=== PATIENT | male | born 1970 ===

== ENCOUNTER 2017-08-25 18:31 | Observation (INO) | payer MEDICAID ==
[2017-08-25 19:31] LABS: BASO # 0.1 K/uL (0.0-0.2); BASO % 1.2 % (0.0-2.0); EOS # 0.4 K/uL (0.0-0.7); EOS % 3.9 % (0.0-4.0); HEMOGLOBIN 13.9 g/dL (12.0-18.0); LYMPH % 30.1 % (20.0-40.0); MEAN CELL VOLUME 94.5 fl (80.0-94.0); MEAN CORPUSCULAR HEMOGLOBIN 31.5 pg (27.0-31.0); MEAN CORPUSCULAR HGB CONC 33.3 g/dL (33.0-37.0); MEAN PLATELET VOLUME 7.4 fl (7.2-11.7); MONO # 0.7 K/uL (0.0-0.8); MONO % 7.1 % (0.0-10.0); NEUT # 5.8 K/uL (1.8-7.0); NEUT % 57.7 % (50.0-75.0); NRBC % 0.1 % (0.0-0.0); RBC 4.42 Mil/uL (4.40-5.90); RED CELL DISTRIBUTION WIDTH 13.2 % (11.5-14.5); WHITE BLOOD COUNT 10.1 K/uL (4.8-10.8)
[2017-08-25 19:43] LABS: ALB/GLOB RATIO 1.3 (1.0-2.1); ALBUMIN 3.7 g/dL (3.5-5.0); ALT/SGPT 38 U/L (21-72); AST/SGOT 23 U/L (17-59); BLOOD UREA NITROGEN 21 mg/dl (9-20); CALCIUM 8.9 mg/dL (8.4-10.2); GFR AFRICAN-AMERICAN > 60; GFR NON-AFRICAN AMERICAN > 60
[2017-08-25] MEDS ORDERED: Sodium Chloride 0.9% 1,000 ML IV STA ×2 (19:46→23:30)
[2017-08-25] MEDS ORDERED: Iohexol 300 100 ML IJ ONE (19:57)
[2017-08-25] MEDS ORDERED: Sodium Chloride 0.9% 100 ML ONE (19:58)
--- NOTE | 2017-08-25 20:12 | ED PDOC ---
HPI: Altered Mental Status Time Seen by Provider: 08/25/17 18:40 Chief Complaint (Nursing): Weakness/Neurological Deficit Chief Complaint (Provider): Abdominal pain, possible syncope History Per: Patient, EMS History/Exam Limitations: Clinical Condition Usual Baseline: Unknown Additional Complaint(s): 48 yo male brought in for evaluation of AMS and syncope according to triage note. EMS informed RN at bedside that patient admits to drinking today and was found laying on the ground sleeping. Pt only states he has abdominal pain and difficult to arouse. PT is not answering any questions. Past Medical History Reviewed: Historical Data, Nursing Documentation, Vital Signs Vital Signs: Last Vital Signs Temp 97.8 F 08/25/17 18:33 Pulse 102 H 08/25/17 18:33 Resp 18 08/25/17 18:33 BP 90/52 L 08/25/17 18:33 Pulse Ox 95 08/25/17 18:33 - Medical History PMH: No Chronic Diseases - Surgical History Surgical History: No Surg Hx - Family History Family History: States: No Known Family Hx - Living Arrangements Living Arrangements: With Family - Social History Current smoker - smoking cessation education provided: No - Allergies Allergies/Adverse Reactions: Allergies Allergy/AdvReac Type Severity Reaction Status Date / Time Penicillins Allergy RASH Verified 08/25/17 18:33 Review of Systems Review Of Systems: ROS cannot be obtained secondary to pt's inabilty to answer questions. Physical Exam - Reviewed Nursing Documentation Reviewed: Yes Vital Signs Reviewed: Yes - Physical Exam Appears: Positive for: Well, Non-toxic, No Acute Distress Head Exam: Positive for: ATRAUMATIC, NORMAL INSPECTION, NORMOCEPHALIC Skin: Positive for: Normal Color, Warm, DRY Eye Exam: Positive for: EOMI, Normal appearance, PERRL ENT: Positive for: Normal ENT Inspection Neck: Positive for: Normal, Painless ROM Cardiovascular/Chest: Positive for: Regular Rate, Rhythm Respiratory: Positive for: CNT, Normal Breath Sounds Gastrointestinal/Abdominal: Positive for: Soft, Tenderness (Epigastric, no pulsitile mass ). Negative for: Normal Exam Back: Positive for: Normal Inspection Extremity: Positive for: Normal ROM Neurologic/Psych: Positive for: Alert, Oriented - Laboratory Results Result Diagrams: 08/25/17 19:20 08/25/17 19:20 - ECG O2 Sat by Pulse Oximetry: 95 Medical Decision Making Medical Decision Making: Labs, head CT and abdominal CT ordered. Alcohol (-) additional orders placed. 2010 - Endosrsed to JYOTI Cramer. Pt up and asking RN for food. Disposition - Clinical Impression Clinical Impression: Altered mental status - Patient ED Disposition Is Patient to be Admitted: Transfer of Care - Disposition Disposition: Transfer of Care Disposition Time: 20:14 Condition: STABLE
--- NOTE | 2017-08-25 21:52 | CT ---
EXAM: CT Head Without Intravenous Contrast EXAM DATE/TIME: 08/25/2017 8:48 PM CLINICAL HISTORY: 48 years old, male; Pain and signs and symptoms; Altered mental status/memory loss and dizziness and other: Weakness; Other: Not specified; Headache; Headache not specified; Additional info: AMS TECHNIQUE: Axial computed tomography images of the head/brain without intravenous contrast. All CT scans at this facility use one or more dose reduction techniques, viz.: automated exposure control; ma/kV adjustment per patient size (including targeted exams where dose is matched to indication; i.e. head); or iterative reconstruction technique. Coronal and sagittal reformatted images were created and reviewed. COMPARISON: No relevant prior studies available. FINDINGS: BRAIN: No significant acute abnormality identified. No acute hemorrhage seen within the brain. No acute extra-axial fluid collections visualized. No evidence of significant mass effect within the brain. VENTRICLES: No evidence of significant hydrocephalus. BONES/JOINTS: Metallic hardware in the left orbital roof. SOFT TISSUES: No acute abnormality of the visualized soft tissues is seen. SINUSES: Mild sinus inflammatory disease. There is mild mucosal thickening in the bilateral ethmoid, bilateral maxillary and left frontal sinuses. MASTOID AIR CELLS: Mastoid air cells appear clear. IMPRESSION: - No acute findings seen within the brain. - See above for remaining findings.
--- NOTE | 2017-08-25 21:56 | ED PDOC ---
- Laboratory Results Result Diagrams: 08/25/17 19:20 08/25/17 19:20 - ECG O2 Sat by Pulse Oximetry: 95 Pulse Ox Interpretation: Normal - Radiology X-Ray: Viewed By Me X-Ray Interpretation: No Acute Disease - Progress ED Course And Treament: case endorsed to remote mortgage underwriter from [facility]ONT[facility] pending labs, imaging, re-eval EXAM: CT Head Without Intravenous Contrast EXAM DATE/TIME: 08/25/2017 8:48 PM CLINICAL HISTORY: 48 years old, male; Pain and signs and symptoms; Altered mental status/memory loss and dizziness and other: Weakness; Other: Not specified; Headache; Headache not specified; Additional info: AMS TECHNIQUE: Axial computed tomography images of the head/brain without intravenous contrast. All CT scans at this facility use one or more dose reduction techniques, viz.: automated exposure control; ma/kV adjustment per patient size (including targeted exams where dose is matched to indication; i.e. head); or iterative reconstruction technique. Coronal and sagittal reformatted images were created and reviewed. COMPARISON: No relevant prior studies available. FINDINGS: BRAIN: No significant acute abnormality identified. No acute hemorrhage seen within the brain. No acute extra-axial fluid collections visualized. No evidence of significant mass effect within the brain. VENTRICLES: No evidence of significant hydrocephalus. BONES/JOINTS: Metallic hardware in the left orbital roof. SOFT TISSUES: No acute abnormality of the visualized soft tissues is seen. SINUSES: Mild sinus inflammatory disease. There is mild mucosal thickening in the bilateral ethmoid, bilateral maxillary and left frontal sinuses. MASTOID AIR CELLS: Mastoid air cells appear clear. IMPRESSION: - No acute findings seen within the brain. - See above for remaining findings. EXAM: CT Abdomen and Pelvis With Intravenous Contrast EXAM DATE/TIME: 08/25/2017 8:50 PM CLINICAL HISTORY: 48 years old, male; Pain; Abdominal pain; Epigastric; Additional info: Abd pain TECHNIQUE: Axial computed tomography images of the abdomen and pelvis with intravenous contrast. All CT scans at this facility use one or more dose reduction techniques, viz.: automated exposure control; ma/kV adjustment per patient size (including targeted exams where dose is matched to indication; i.e. head); or iterative reconstruction technique. Coronal and sagittal reformatted images were created and reviewed. CONTRAST: 90 mL of [id number] administered intravenously. COMPARISON: No relevant prior studies available. FINDINGS: LUNG BASES: No significant abnormality seen. ABDOMEN: LIVER: No acute abnormality of the liver identified. GALLBLADDER AND BILE DUCTS: Multiple small gallstones, including stones in the gallbladder neck. No CT evidence of acute cholecystitis. No evidence of significant biliary ductal dilatation. PANCREAS: No CT evidence of acute pancreatitis. SPLEEN: No acute abnormality of the spleen identified. ADRENALS: No acute abnormality of the adrenal glands identified. KIDNEYS AND URETERS: No acute abnormality of the kidneys identified. No evidence of significant hydrouereteronephrosis. STOMACH AND BOWEL: Retained stool noted throughout the colon, with no evidence of a significant large bowel obstruction or fecal impaction. Bowel is otherwise unremarkable in appearance. No acute abnormality of the stomach or duodenum identified. No evidence of small bowel obstruction. PELVIS: APPENDIX: Normal appendix is not seen, however, there are no significant inflammatory changes visualized in the expected location of the appendix to suggest appendicitis. Recommend clinical correlation. BLADDER: Moderate diffuse thickening of the bladder wall. The bladder is incompletely distended. REPRODUCTIVE: No acute abnormality of the reproductive organs is seen. ABDOMEN and PELVIS: INTRAPERITONEAL SPACE: No evidence of free intraperitoneal air or fluid. BONES/JOINTS: Incidental posterior disc bulges at L3-4 and L4-5, centered to the right of midline, causing spinal canal stenosis. SOFT TISSUES: No acute abnormality of the visualized soft tissues is seen. VASCULATURE: No evidence of abdominal aortic aneurysm. No evidence of periaortic hemorrhage. LYMPH NODES: No evidence of diffuse lymphadenopathy. IMPRESSION: - Bladder wall thickening. This is a nonspecific finding, but can be seen with cystitis. Recommend clinical correlation. - Otherwise, no evidence of significant acute process. Appendix is not seen, however. - Gallstones, including stones in the gallbladder neck. No CT evidence of cholecystitis. - See above for remaining findings. On re-eval, patient awake, alert, oriented x3. States he still feels weak and dizzy. BP 80/50. Second IV NS bolus ordered Repeat BP 86/[address] Dick, medical service on-call, for placement in tele obs. Dr. Dick recommends LR at 125cc/hr Disposition - Clinical Impression Clinical Impression: Generalized weakness, Polysubstance abuse, Cholelithiasis, Syncope, Hypotension - POA Present On Arrival: None - Disposition Disposition: Routine/Home Disposition Time: 23:23 Condition: FAIR
[2017-08-25 21:58] LABS: SQUAMOUS EPITHIAL 1 /hpf (0-5); URINE BACTERIA RARE (<OCC); URINE BILIRUBIN NEGATIVE (NEGATIVE); URINE BLOOD NEGATIVE (NEGATIVE); URINE CLARITY SLIGHTY-CLOUDY (Clear); URINE COLOR AMBER (YELLOW); URINE GLUCOSE (UA) 150 mg/dL (Normal); URINE LEUKOCYTE ESTERASE NEG Leu/uL (Negative); URINE PROTEIN 100 mg/dL (NEGATIVE)
[2017-08-25 22:08] LABS: BARBITURATES, UR NEGATIVE (NEGATIVE)
[2017-08-25 22:09] LABS: BENZODIAZEPINES, UR NEGATIVE (NEGATIVE); OPIATES, UR NEGATIVE (NEGATIVE); PHENCYCLIDINE, UR NEGATIVE (NEGATIVE)
--- NOTE | 2017-08-25 22:15 | CT ---
EXAM: CT Abdomen and Pelvis With Intravenous Contrast EXAM DATE/TIME: 08/25/2017 8:50 PM CLINICAL HISTORY: 48 years old, male; Pain; Abdominal pain; Epigastric; Additional info: Abd pain TECHNIQUE: Axial computed tomography images of the abdomen and pelvis with intravenous contrast. All CT scans at this facility use one or more dose reduction techniques, viz.: automated exposure control; ma/kV adjustment per patient size (including targeted exams where dose is matched to indication; i.e. head); or iterative reconstruction technique. Coronal and sagittal reformatted images were created and reviewed. CONTRAST: 90 mL of [id number] administered intravenously. COMPARISON: No relevant prior studies available. FINDINGS: LUNG BASES: No significant abnormality seen. ABDOMEN: LIVER: No acute abnormality of the liver identified. GALLBLADDER AND BILE DUCTS: Multiple small gallstones, including stones in the gallbladder neck. No CT evidence of acute cholecystitis. No evidence of significant biliary ductal dilatation. PANCREAS: No CT evidence of acute pancreatitis. SPLEEN: No acute abnormality of the spleen identified. ADRENALS: No acute abnormality of the adrenal glands identified. KIDNEYS AND URETERS: No acute abnormality of the kidneys identified. No evidence of significant hydrouereteronephrosis. STOMACH AND BOWEL: Retained stool noted throughout the colon, with no evidence of a significant large bowel obstruction or fecal impaction. Bowel is otherwise unremarkable in appearance. No acute abnormality of the stomach or duodenum identified. No evidence of small bowel obstruction. PELVIS: APPENDIX: Normal appendix is not seen, however, there are no significant inflammatory changes visualized in the expected location of the appendix to suggest appendicitis. Recommend clinical correlation. BLADDER: Moderate diffuse thickening of the bladder wall. The bladder is incompletely distended. REPRODUCTIVE: No acute abnormality of the reproductive organs is seen. ABDOMEN and PELVIS: INTRAPERITONEAL SPACE: No evidence of free intraperitoneal air or fluid. BONES/JOINTS: Incidental posterior disc bulges at L3-4 and L4-5, centered to the right of midline, causing spinal canal stenosis. SOFT TISSUES: No acute abnormality of the visualized soft tissues is seen. VASCULATURE: No evidence of abdominal aortic aneurysm. No evidence of periaortic hemorrhage. LYMPH NODES: No evidence of diffuse lymphadenopathy. IMPRESSION: - Bladder wall thickening. This is a nonspecific finding, but can be seen with cystitis. Recommend clinical correlation. - Otherwise, no evidence of significant acute process. Appendix is not seen, however. - Gallstones, including stones in the gallbladder neck. No CT evidence of cholecystitis. - See above for remaining findings.
[2017-08-26] MEDS ORDERED: Lactated Ringer's 1,000 ML IV SCH (00:30)
[2017-08-26] MEDS ORDERED: Pneumococcal 23-Valent Vaccine IM ONE (03:20)
[2017-08-26] MEDS: Insulin Regular 100 units/ml SC SCH ×4 (06:34→22:40)
--- NOTE | 2017-08-26 06:34 | RAD ---
HISTORY: admit COMPARISON: No prior. FINDINGS: LUNGS: No active pulmonary disease. PLEURA: No significant pleural effusion identified, no pneumothorax apparent. CARDIOVASCULAR: No radiographic findings to suggest acute or significant cardiovascular disease. OSSEOUS STRUCTURES: No significant abnormalities. VISUALIZED UPPER ABDOMEN: Normal. OTHER FINDINGS: None. IMPRESSION: No active disease.
--- NOTE | 2017-08-26 09:22 | US ---
PROCEDURE: Bilateral lower extremity venous duplex Doppler. HISTORY: BLE pain COMPARISON: None available. TECHNIQUE: Bilateral common femoral, superficial femoral, popliteal, posterior tibial and peroneal veins were evaluated. Flow was assessed with color Doppler, compressibility, assessment of phasic flow and augmentation response. FINDINGS: COMMON FEMORAL VEIN: Right CFV: Unremarkable. Left CFV: Unremarkable. SUPERFICIAL FEMORAL VEIN: Right SFV: Unremarkable. Left SFV: Unremarkable. POPLITEAL VEIN: Right Popliteal: Unremarkable. Left Popliteal: Unremarkable. POSTERIOR TIBIAL VEIN: Right PTV/peroneal: Unremarkable. Left PTV/peroneal: Unremarkable. OTHER FINDINGS: None. IMPRESSION: No evidence of deep venous thrombosis.
--- NOTE | 2017-08-26 09:29 | US ---
PROCEDURE: Duplex ultrasound of the bilateral lower extremity arteries. HISTORY: Bilateral lower extremity pain COMPARISON: None available. TECHNIQUE: Grayscale and duplex Doppler evaluation of the bilateral common femoral, superficial femoral, popliteal, posterior tibial and dorsalis pedis arteries was performed. FINDINGS: RIGHT LOWER EXTREMITY: RIGHT COMMON FEMORAL ARTERY: Widely patent. Maximal flow velocity of 79.6 cm/s. RIGHT SUPERFICIAL FEMORAL ARTERY: * Proximal: Widely patent. Maximal flow velocity of 70.5 cm/s. * Mid: Widely patent. Maximal flow velocity of 71.9 cm/s. * Distal: Widely patent. Maximal flow velocity of 60.2 cm/s. RIGHT POPLITEAL ARTERY: Widely patent. Maximal flow velocity of 53.7 cm/s. RIGHT ANTERIOR TIBIAL ARTERY: Widely patent. Maximal flow velocity of 64.1 cm/s. RIGHT POSTERIOR TIBIAL ARTERY: Widely patent. Maximal flow velocity of 51.1 cm/s. RIGHT DORSALIS PEDIS ARTERY: Widely patent. Maximal flow velocity of 41.6 cm/s. LEFT LOWER EXTREMITY: LEFT COMMON FEMORAL ARTERY: Widely patent. Maximal flow velocity of 77.0 cm/s. LEFT SUPERFICIAL FEMORAL ARTERY: * Proximal: Widely patent. Maximal flow velocity of 63.2 cm/s. * Mid: Widely patent. Maximal flow velocity of 74.4 cm/s. * Distal: Widely patent. Maximal flow velocity of 58.9 cm/s. LEFT POPLITEAL ARTERY: Widely patent. Maximal flow velocity of 52.1 cm/s. LEFT ANTERIOR TIBIAL ARTERY: Widely patent. Maximal flow velocity of 55.4 cm/s. LEFT POSTERIOR TIBIAL ARTERY: Widely patent. Maximal flow velocity of 58.2 cm/s. LEFT DORSALIS PEDIS ARTERY: Widely patent. Maximal flow velocity of 36.2 cm/s. OTHER FINDINGS: Diffuse calcific atherosclerosis. IMPRESSION: Normal Duplex Doppler of the bilateral lower extremity arteries.
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
[2017-08-26] MEDS: Sodium Chloride 0.9% 1,000 ML IV SCH ×2 (10:55→22:52)
[2017-08-26] MEDS ORDERED: Dextrose 50% SYRINGE Inj (50 ml) IV PRN (15:11)
[2017-08-26] MEDS ORDERED: Glucagon Recombinant 1 mg Inj IM PRN (15:11)
[2017-08-26] MEDS: Enoxaparin 40 mg Syringe SC SCH (16:32)
--- NOTE | 2017-08-26 18:01 | CARD ---
APPROVED REPORT EXAM: Two-dimensional and M-mode echocardiogram with Doppler and color Doppler. Other Information Quality : ExcellentRhythm : NSR INDICATION Syncope Hypotension 2D DIMENSIONS IVSd1.48 (0.7-1.1cm)LVDd4.42 (3.9-5.9cm) LVOT Diameter2.21 (1.8-2.4cm)PWd0.96 (0.7-1.1cm) IVSs1.26 (0.8-1.2cm)LVDs3.12 (2.5-4.0cm) FS (%) 29.4 %PWs1.55 (0.8-1.2cm) LVEF (%)40.0 (>50%) M-Mode DIMENSIONS Left Atrium (MM)4.09 (2.5-4.0cm)IVSd1.29 (0.7-1.1cm) Aortic Root3.06 (2.2-3.7cm)LVDd4.92 (4.0-5.6cm) Aortic Cusp Exc.2.29 (1.5-2.0cm)PWd0.85 (0.7-1.1cm) IVSs1.70 cmFS (%) 30 % LVDs3.42 (2.0-3.8cm)PWs1.36 cm Mitral Valve MV E Qcesfepq49.5cm/sMV DECEL [id number] A Kxnhtljw66.7cm/s MV HSE25mnH/A ratio1.6MVA (PHT)3.03cm2 TDI Lateral E' Peak V12.39cm/sMedial E' Peak V11.81cm/sE/Lateral E'4.5 E/Medial E'4.7 Pulmonary Valve PV Peak Muebtamn10.0cm/s LEFT VENTRICLE The left ventricle is normal size. There is mild concentric left ventricular hypertrophy. The systolic function is moderately impaired. There is global hypokinesis of the left ventricle. Transmitral Doppler flow pattern is abnormal. Spontaneous contrast is noted consistent with the low flow state. There is no ventricular septal defect visualized. RIGHT VENTRICLE The right ventricle is borderline dilated. There is normal right ventricular wall thickness. Systolic function is mildly reduced. ATRIA The left atrium size is normal. The right atrium size is normal. AORTIC VALVE The aortic valve is mildly thickened. There is trace aortic regurgitation. There is no aortic valvular stenosis. MITRAL VALVE The mitral valve is mildly thickened. There is no mitral valve stenosis. There is no mitral valve regurgitation noted. TRICUSPID VALVE The tricuspid valve is normal in structure. There is no tricuspid valve regurgitation noted. PULMONIC VALVE The pulmonary valve is normal in structure. There is no pulmonic valvular regurgitation. GREAT VESSELS The aortic root is normal in size. The IVC is normal in size and collapses >50% with inspiration. PERICARDIAL EFFUSION The pericardium appears normal. <Conclusion> The left ventricle is normal size. There is mild concentric left ventricular hypertrophy. The systolic function is moderately impaired. There is global hypokinesis of the left ventricle. Spontaneous contrast is noted consistent with the low flow state.
[2017-08-26 23:46] VITALS: RESP 20
--- NOTE | 2017-08-27 07:28 | CARD ---
APPROVED REPORT EKG Measurement Heart [id number] ID [id number] <Conclusion> Normal sinus rhythm Voltage criteria for left ventricular hypertrophy Early repolarization Abnormal ECG
[2017-08-27 08:32] VITALS: BP 110/75; PULSE 65; TEMP 97.8; O2SAT 99
[2017-08-27] MEDS: Enoxaparin 40 mg Syringe SC SCH (09:08)
[2017-08-27] MEDS: Insulin Regular 100 units/ml SC SCH ×2 (09:08→12:48)
--- NOTE | 2017-08-27 09:56 | PN ---
DATE: 08/27/2017 SUBJECTIVE: The patient is seen and examined. Interim events noted. The patient remains in regular medical floor. The patient feels okay. Denies any chest pain or shortness of breath. Complains of occasional neck pain and joint arthritic pain in the lower extremity. No dizziness. No loss of consciousness. PHYSICAL EXAMINATION: GENERAL: The patient is in no acute distress. VITAL SIGNS: Stable. Temperature 98.5, pulse 84, respirations 20, and blood pressure 104/67. No orthostatic changes. HEART: S1 and S2, normal and regular. LUNGS: Good bilateral air exchange. ABDOMEN: Soft and nontender. EXTREMITIES: No edema. No calf swelling. No tenderness. No acute ischemia. CENTRAL NERVOUS SYSTEM: Exam is essentially unchanged. DIAGNOSTIC DATA: Available diagnostic data reviewed. Accu-Cheks are elevated. TSH level is 0.6. Doppler studies of lower extremity is negative. Echocardiogram shows global hypokinesis with moderately impaired systolic left ventricular function and concentric left ventricular hypertrophy. Accu-Cheks are slightly elevated. Chest x-ray is clear. PLAN: Overall, the patient is hemodynamically stable without any orthostatic changes. Plan as ordered. Nikolas Pemberton MD
== END 2017-08-27 16:40 | disposition left against medical advice (07) ==
LOC: EDBD 18:31 → H.ER 18:31 → H.ERHOLD 08-26 00:34 → H.TEL 08-26 01:51 → H.MEDSURG1 08-26 12:19
PROVIDERS: ADMIT Family Medicine; ATTEND Family Medicine
DX: E11.649 Type 2 diabetes mellitus with hypoglycemia without coma (principal); E86.0 Dehydration; R53.1 Weakness; R55 Syncope and collapse; I95.9 Hypotension, unspecified; F19.10 Other psychoactive substance abuse, uncomplicated; R41.82 Altered mental status, unspecified; F14.90 Cocaine use, unspecified, uncomplicated; F12.90 Cannabis use, unspecified, uncomplicated; K80.20 Calculus of gallbladder without cholecystitis without obstruction; M17.11 Unilateral primary osteoarthritis, right knee; Z79.4 Long term (current) use of insulin; Z87.891 Personal history of nicotine dependence
CPT/HCPCS: 36415; 70450; 71045; 74177; 80053; 80320; 80324; 80345; 80346; 80349; 80353; 80358; 80361; 81003; 82607; 82948; 83036; 83690; 83992; 84443; 84484; 85025; 87086; 90471; 90732; 93005; 93306; 93925; 93970; 96360; 96361; 96372; 99285; G0378; J1650; J7040; J7120; Q9967